=== PATIENT | female | born 1950 | race Caucasian/White ===

== ENCOUNTER 2017-08-07 18:55 | Emergency (ER) | payer BC, MEDICARE ==
[2017-08-07] MEDS ORDERED: Ibuprofen 800 MG TAB ONE (20:23)
[2017-08-07] MEDS ORDERED: HYDROcodone/Acetaminophen 5/325 mg Tablet ONE (20:23)
[2017-08-07] MEDS ORDERED: Acetaminophen 325 MG TAB ONE (20:23)
--- NOTE | 2017-08-07 21:02 | RAD ---
TWO VIEWS LEFT TIBIA AND FIBULA: 08/07/17 HISTORY: Pain. COMPARISON: None. FINDINGS: Oblique, minimally displaced fracture of the proximal fibula. No additional fractures. IMPRESSION: Proximal fibula fracture. POS: PPP
--- NOTE | 2017-08-07 21:03 | RAD ---
LEFT FOOT THREE VIEWS: 08/07/17 HISTORY: Injury. Pain. COMPARISON: None. FINDINGS: Lisfranc alignment is maintained. Joint spaces are preserved. No fracture. No cortical irregularity. No periosteal reaction. IMPRESSION: No posttraumatic changes. POS: PPP
== END 2017-08-07 20:49 | disposition home or self-care (01) ==
LOC: MADERS 18:55
DX: S82.452A Displaced comminuted fracture of shaft of left fibula, initial encounter for closed fracture (principal); E11.9 Type 2 diabetes mellitus without complications; W18.30XA Fall on same level, unspecified, initial encounter
CPT/HCPCS: 29515